=== PATIENT | male | born 1975 | race Two or more races ===

== ENCOUNTER 2025-03-23 16:45 | Emergency (ER) | payer MEDICAID, SELFPAY ==
[2025-03-23 16:56] VITALS: BP 132/88; PULSE 79; RESP 18; TEMP 36.9; O2SAT 95
--- NOTE | 2025-03-23 17:08 | PD.EDRME ---
Rapid Medical Screening Exam RME Arrival date/time: 03/23/25 16:45 Chief Complaint: General Adult/Misc Complain Time Seen by Provider: 03/23/25 17:01 Vital signs: Vital Signs Temperature 98.5 F 03/23/25 16:56 Pulse Rate 79 03/23/25 16:56 Respiratory Rate 18 03/23/25 16:56 Blood Pressure 132/88 H 03/23/25 16:56 Pulse Oximetry (%) 95 03/23/25 16:56 Oxygen Delivery Method Room Air 03/23/25 16:56 Vital signs reviewed by provider: Yes RME Narrative: 49-year-old male presents to the ED after his daughter brought him here and left him because she is no longer able to care for him. 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 He was previously homeless along with his son. After his BKA he came to live with his daughter. He is requesting community placement at this time because he is unable to care for himself. He has no medical complaints at this time. workers compensation adjusterShae was contacted and she will be in to see the patient as soon as possible.
--- NOTE | 2025-03-23 17:28 | PD.EDADULT ---
ED General RME/HPI General Chief complaint: General Adult/Misc Complain Stated complaint: NEEDS HELP W/ COMMUNITY PLACEMENT Time Seen by Provider: 03/23/25 17:01 Arrival date/time: 03/23/25 16:45 RME / HPI RME / HPI narrative: 49-year-old male presents to the ED after his daughter brought him here and left him because she is no longer able to care for him. 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 He was previously homeless along with his son. After his BKA he came to live with his daughter. He is requesting community placement at this time because he is unable to care for himself. He has no medical complaints at this time. sand worker, Shae was contacted and she will be in to see the patient as soon as possible. Related Data Allergies Allergy/AdvReac Type Severity Reaction Status Date / Time Sulfa (Sulfonamide Allergy Unknown Verified 03/23/25 16:49 Antibiotics) PEANUTS Allergy Mild ITCHY Uncoded 03/23/25 16:49 Course Course Course Narrative: Sebastian from social worker delinquency prevention came to talk to the patient and gave him some resources. He feels comfortable with the resources given. Quality Measures none Vital Signs Vital signs: Vital Signs Temperature 98.5 F 03/23/25 16:56 Pulse Rate 79 03/23/25 16:56 Respiratory Rate 18 03/23/25 16:56 Blood Pressure 132/88 H 03/23/25 16:56 Pulse Oximetry (%) 95 03/23/25 16:56 Oxygen Delivery Method Room Air 03/23/25 16:56 Discharge Plan Plan Patient Disposition: HOME (Self Care) Problem List Clinical Impression: Adult general medical exam Patient/Caregiver Discharge Instructions Other Activity Instructions:: Utilized the services provided to you by the social worker assistant. Education Materials: ED Medical Screening Exam, Nonemergent Additional Instructions: Follow-up with your primary care physician in 24 to 48 hours. Return to the ED for any new or worsening symptoms. Print Language: Malagasy Stand Alone Forms: Janice Award Info., Patient Portal Info Letter PA/OUTSIDE EVENT SALES SPECIALIST Supervising Physician PA/OUTSIDE EVENT SALES SPECIALIST Supervising Physician: Dr. Shaffer
--- NOTE | 2025-03-23 17:34 | PC.SS ---
SS update: met with patient to provide community resources including shelters, SNF listings and local food pantry information. Patient was receptive to the resources. Contacted patient's daughter, Shikha Cha [phone] who will be coming by to transport the patient back home. Patient ready to be d/c.
== END 2025-03-23 17:59 | disposition home or self-care (01) ==
LOC: SERX 17:33
PROVIDERS: Emergency Provider Family Medicine
DX: Z00.00 Encounter for general adult medical examination without abnormal findings (principal); Z74.1 Need for assistance with personal care; Z89.511 Acquired absence of right leg below knee; Z99.3 Dependence on wheelchair; Z59.00 Homelessness unspecified
CPT/HCPCS: 99282